=== PATIENT | female | born 1955 | race Caucasian/White ===

== ENCOUNTER 2016-09-10 13:23 | Outpatient (CLI) | payer BC ==
[~2016-09-10] VITALS: Ht 165.1 cm; Wt 68.7 kg
[~2016-09-10 13:23] MED LIST: ONDA-42 SL
--- OUTSIDE RECORDS SUMMARY | 2016-09-10 13:27 | XMS REPORT | Continuity of Care Document ---
Author Author [facility] Organization [facility] Address Unknown Phone Unavailable Care Team Providers Care Manager Produce Name Role Phone Yesica Shailesh PCP [phone] Source Comments Some departments are not documenting in the electronic medical record. If you do not see the information that you expected, contact Release of Information in the Health Information Management department at [phone] for further assistance in locating additional records.[facility] Active Allergies and Adverse Reactions Allergen Noted Date Severity Reactions Comments Shelia 10/10/2014 Medium NAUSEA ONLY, MENTAL STATUS CHANGES Current Medications Prescription Sig. Disp. Refills Start End Date Status Date lansoprazole DR(+) Take 30 mg by mouth twice Active (PREVACID) 30 mg capsule daily. HYDROCODONE/ACETAMINOPHEN Take by mouth. Active (VICODIN PO) scopolamine Apply 1 Patch to top of 10 Patch 1 02/08/20 Active (TRANSDERM-SCOP) 1.5 mg skin as directed every 72 15 patch hours. LORazepam (ATIVAN) 0.5 mg Take 2 Tabs by mouth 30 Tab 0 11/24/19 Active tablet every 8 hours as needed 16 for Nausea, Vomiting or Other.... Active Problems No known active problems Social History Tobacco Use Types Packs/Day Years Used Date Former Smoker Cigarettes 1 15 Alcohol Use Drinks/Week oz/Week Comments No 1-2 drinks per year Last Filed Vital Signs Vital Sign Reading Time Taken Blood Pressure 121/76 06/02/2015 12:13 PM REGULATORY TECHNICIAN Pulse 76 06/02/2015 12:13 PM REGULATORY TECHNICIAN Temperature 36.8 C (98.2 F) 06/02/2015 12:13 PM REGULATORY TECHNICIAN Respiratory Rate 16 06/02/2015 12:13 PM REGULATORY TECHNICIAN Height 1.702 m (5' 7") 06/02/2015 12:13 PM REGULATORY TECHNICIAN Weight 75.388 kg (166 lb 3.2 oz) 06/02/2015 12:13 PM REGULATORY TECHNICIAN Body Mass Index 26.02 06/02/2015 12:13 PM REGULATORY TECHNICIAN Oxygen Saturation - - Plan of Care Health Maintenance Due Date Last Done Comments Hepatitis C Screening 1954 Physical (Comprehensive) 1961 Exam Pertussis Vaccine 1965 Tetanus Vaccine 1971 Cervical Cancer Screening 1975 Breast Cancer Screening 1994 Shingles Vaccine 2014 Influenza Vaccine 03/18/2016 Colorectal Cancer 12/12/2024 12/12/2014 Screening Results from Last 3 Months Not on file
[2016-09-10 13:30] VITALS: BP 124/65
[2016-09-10] MEDS ORDERED: LYSI500T PO (13:36)
[2016-09-10] MEDS ORDERED: MILK1CAP2 PO (13:36)
[2016-09-10] MEDS ORDERED: LORA0.5T PO (13:36)
[2016-09-10] MEDS ORDERED: CHOL100045 PO (13:36)
[2016-09-10] MEDS ORDERED: GLUC100016 PO (13:36)
[2016-09-10] MEDS ORDERED: MULT-178 PO (13:36)
[2016-09-10 14:04] LABS: BASOPHILS % (AUTO) 0 % (0-10); EOSINOPHILS # (AUTO) 0.1 10^3/uL (0.0-0.3); EOSINOPHILS % (AUTO) 2 % (0-10); LYMPHOCYTES % (AUTO) 29 % (12-44); MEAN CORPUSCULAR HEMOGLOBIN 29 PG (25-34); MEAN CORPUSCULAR HGB CONC 33 G/DL (32-36); MEAN CORPUSCULAR VOLUME 88 FL (80-99); MEAN PLATELET VOLUME 11.3 FL (7.4-10.4); MONOCYTES # (AUTO) 0.4 X 10^3 (0.0-1.0); MONOCYTES % (AUTO) 5 % (0-12); NEUTROPHILS # (AUTO) 4.4 X 10^3 (1.8-7.8); NEUTROPHILS % (AUTO) 64 % (42-75); PLATELET COUNT 191 10^3/uL (130-400); RED CELL DISTRIBUTION WIDTH 14.3 % (10.0-14.5); WHITE BLOOD COUNT 6.9 10^3/uL (4.3-11.0)
[2016-09-10 14:25] LABS: ANION GAP 7 MMOL/L (5-14); BLOOD UREA NITROGEN 14 MG/DL (7-18); BUN/CREATININE RATIO 17; CALCIUM 9.5 MG/DL (8.5-10.1); CARBON DIOXIDE 26 MMOL/L (21-32); CHLORIDE 106 MMOL/L (98-107); CREATININE SERUM 0.83 MG/DL (0.60-1.30); GFR ESTIMATED > 60; GLUCOSE 107 MG/DL (70-105); POTASSIUM 3.9 MMOL/L (3.6-5.0); SODIUM 139 MMOL/L (135-145)
== END 2016-09-10 13:55 | disposition home or self-care (01) ==
LOC: PREOP 13:23
PROVIDERS: ATTEND Surgery
DX: Z01.812 Encounter for preprocedural laboratory examination (principal); Z11.2 Encounter for screening for other bacterial diseases; K80.20 Calculus of gallbladder without cholecystitis without obstruction
CPT/HCPCS: 36415; 80048; 85025; 87081

== ENCOUNTER 2016-09-15 08:55 | Day surgery (SDC) | payer BC ==
[~2016-09-15] VITALS: Ht 165.1 cm; Wt 68.7 kg
[~2016-09-15 08:55] MED LIST changes: +CHOL100045 PO; +GLUC100016 PO; +LORA0.5T PO; +LYSI500T PO; +MILK1CAP2 PO; +MULT-178 PO
[2016-09-15 08:57] VITALS: BP 115/72
--- OUTSIDE RECORDS SUMMARY | 2016-09-15 09:02 | XMS REPORT | Continuity of Care Document ---
Author Author [facility] Organization [facility] Address Unknown Phone Unavailable Care Team Providers Care Deicer Kit Assembler Name Role Phone Yesica Shailesh PCP [phone] Source Comments Some departments are not documenting in the electronic medical record. If you do not see the information that you expected, contact Release of Information in the Health Information Management department at [phone] for further assistance in locating additional records.[facility] Active Allergies and Adverse Reactions Allergen Noted [...] Taken Blood Pressure 121/76 06/02/2015 12:13 PM RELIEF PILOT Pulse 76 06/02/2015 12:13 PM RELIEF PILOT Temperature 36.8 C (98.2 F) 06/02/2015 12:13 PM RELIEF PILOT Respiratory Rate 16 06/02/2015 12:13 PM RELIEF PILOT Height 1.702 m (5' 7") 06/02/2015 12:13 PM RELIEF PILOT Weight 75.388 kg (166 lb 3.2 oz) 06/02/2015 12:13 PM RELIEF PILOT Body Mass Index 26.02 06/02/2015 12:13 PM RELIEF PILOT Oxygen Saturation - - Plan of Care Health Maintenance Due Date Last Done Comments Hepatitis C Screening 1954 Physical (Comprehensive) 1961 Exam Pertussis Vaccine 1965 Tetanus Vaccine 1971 Cervical Cancer Screening 1975 Breast Cancer Screening 1994 Shingles Vaccine 2014 Influenza Vaccine 03/18/2016 Colorectal Cancer 12/12/2024 12/12/2014 Screening Results from Last 3 Months Not on file
--- OUTSIDE RECORDS SUMMARY | 2016-09-15 09:03 | XMS REPORT | Continuity of Care Document ---
Author Author [facility] Organization [facility] Address Unknown Phone Unavailable Care Team Providers Care Hot Plate Plywood Press Offbearer Name Role Phone Yesica Shailesh PCP [phone] Source Comments Some departments are not documenting in the electronic medical record. If you do not see the information that you expected, contact Release of Information in the Health Information Management department at [phone] for further assistance in locating additional records.[facility] Active Allergies and Adverse Reactions Allergen Noted [...] Taken Blood Pressure 121/76 06/02/2015 12:13 PM POWER SWEEPER OPERATOR Pulse 76 06/02/2015 12:13 PM POWER SWEEPER OPERATOR Temperature 36.8 C (98.2 F) 06/02/2015 12:13 PM POWER SWEEPER OPERATOR Respiratory Rate 16 06/02/2015 12:13 PM POWER SWEEPER OPERATOR Height 1.702 m (5' 7") 06/02/2015 12:13 PM POWER SWEEPER OPERATOR Weight 75.388 kg (166 lb 3.2 oz) 06/02/2015 12:13 PM POWER SWEEPER OPERATOR Body Mass Index 26.02 06/02/2015 12:13 PM POWER SWEEPER OPERATOR Oxygen Saturation - - Plan of Care Health Maintenance Due Date Last Done Comments Hepatitis C Screening 1954 Physical (Comprehensive) 1961 Exam Pertussis Vaccine 1965 Tetanus Vaccine 1971 Cervical Cancer Screening 1975 Breast Cancer Screening 1994 Shingles Vaccine 2014 Influenza Vaccine 03/18/2016 Colorectal Cancer 12/12/2024 12/12/2014 Screening Results from Last 3 Months Not on file
[2016-09-15] MEDS ORDERED: ceFAZolin 1 GM/NS 50 ML IVPB IV ONE ×2 (09:15)
[2016-09-15] MEDS ORDERED: LACTATED RINGERS 1,000 ML IV PRN (09:37)
[2016-09-15] MEDS ORDERED: ONDANSETRON 4 MG/2 ML (SDV) Z0FRAN IV ONE (09:45)
[2016-09-15] MEDS ORDERED: MIDAZOLAM 2 MG/2 ML (VERSED) VIAL IV ONE (09:45)
[2016-09-15] MEDS ORDERED: LIDOCAINE 1% INJ 20 ML (XYLOCAINE) VIAL ONE (10:21)
[2016-09-15] MEDS ORDERED: BUPIVACAINE 0.5% 30 ML (SENSORCAINE) VIAL ONE (10:21)
[2016-09-15] MEDS ORDERED: fentaNYL INJECTION 100 MCG/2 ML AMP ONE ×2 (10:49→12:53)
[2016-09-15] MEDS ORDERED: MIDAZOLAM 2 MG/2 ML (VERSED) VIAL ONE (10:49)
--- NOTE | 2016-09-15 10:56 | Progress Note-Pre Operative ---
Pre-Operative Progress Note H&P Reviewed The H&P was reviewed, patient examined and no changes noted. Date H&P Reviewed: Sep 15, 2016 Time H&P Reviewed: 10:56 Pre-Operative Diagnosis: symptomatic cholelithiasis CRISTINO RODRIGUEZ DO Sep 15, 2016 10:56 am
--- NOTE | 2016-09-15 12:03 | Progress Note-Post Operative ---
Post-Operative Progess Note Statistical Machine Mechanic Dr. Mcdonough Pre-Operative Diagnosis symptomatic cholelithiasis Post-Operative Diagnosis same Post-Op Procedure Note Date of Procedure: Sep 15, 2016 Name of Procedure: laparoscopic cholecystectomy with intraoperative cholangiogram Procedure Note/Findings see note Anesthesia Type general Estimated blood loss (mL): minimal Specimen(s) collected gallbladder CRISTINO RODRIGUEZ DO Sep 15, 2016 12:03
[2016-09-15] MEDS ORDERED: LACTATED RINGERS 2,000 ML IV ONE (12:04)
[2016-09-15] MEDS ORDERED: ONDANSETRON 4 MG/2 ML (SDV) Z0FRAN ONE ×2 (12:04→12:53)
[2016-09-15] MEDS ORDERED: proPOfol 200 MG/20 ML (DIPRIVAN) VIAL IV ONE (12:04)
[2016-09-15] MEDS ORDERED: HYDR-3812 PO (12:04)
[2016-09-15] MEDS ORDERED: LIDOCAINE PF 2% 10 ML (XYLOCAINE) AMP ONE (12:04)
[2016-09-15] MEDS ORDERED: ROCURONIUM 50 MG/5 ML (ZEMURON) VIAL IV ONE (12:04)
[2016-09-15] MEDS ORDERED: GLYCOPYRROLATE 0.2 MG/ML (ROBINUL) 2 ML VIAL ONE (12:04)
[2016-09-15] MEDS ORDERED: DOCU-143 PO (12:04)
[2016-09-15] MEDS ORDERED: SEVOFLURANE (ULTANE) 15 ML INHAL SOLN ONE (12:04)
[2016-09-15] MEDS ORDERED: NEOSTIGMINE (BLOXIVERZ ) 1 MG/1ML 10 ML VIAL ONE (12:04)
--- NOTE | 2016-09-15 12:05 | Discharge Inst-Simple/Standard ---
Discharge Inst-Standard Discharge Medications New, Converted or Re-Newed RX: RX on Chart Patient Instructions/Follow Up Plan of Care/Instructions/FU: 2 weeks Rudy Activity as Tolerated: No Discharge Diet: Regular Diet Other Inst to Patient Follow up Appt: Make appointment for 2 weeks. Instructions: No lifting greater than 10 pounds. No strenuous activity. May shower in 24 hours, no tub bath or soaking. Use incentive spirometer at home as directed. No Smoking Skin/Wound Care: May remove bandages in 24 hours. You need to leave the white strips over incision on they will fall off on their own. Symptoms to Report: Appetite Changes, Extremity Discoloration, Numbness/Tingling, Swelling Increased , Bleeding Excessive, Eyesight Changes, Pain Increased, Urine Color Change, Constipation(Persistent), Fever over 101 degree F, Pain/Pressure in chest, Urinating Difficulty, Cough Up/Vomit Blood, Heart Beat Irreg/Pounding, Pain/ Pressure in jaw, Vaginal Bleeding Increase, Cramps in feet or legs, Lightheadedness, Pain/Pressure in shoulder, Diarrhea(Persistent), Memory Changes Suddenly, Questions/Concerns, Weight gain consecutive days, Dizziness/ Fainting, Nausea/Vomiting, Shortness of Breath, Weight gain over 2 pounds. If eyes or skin turn yellow notify physician. If questions or concerns contact your physician Or seek help at emergency department. CRISTINO RODRIGUEZ DO Sep 15, 2016 12:05
[2016-09-15] MEDS ORDERED: HYDROcodone/APAP 5 MG/325 MG (LORTAB) TAB PO PRN (12:15)
[2016-09-15] MEDS ORDERED: morphine INJ 10 MG/ML 1ML (SYR OR VIAL) ONE (12:27)
[2016-09-15] MEDS ORDERED: KETOROLAC 30 MG/ML VIAL ONE (12:27)
[2016-09-15] MEDS ORDERED: fentaNYL INJECTION 100 MCG/2 ML AMP IV PRN (12:30)
[2016-09-15] MEDS ORDERED: ONDANSETRON 4 MG/2 ML (SDV) Z0FRAN IV PRN (12:30)
[2016-09-15] MEDS: morphine INJ 10 MG/ML 1ML (SYR OR VIAL) IV PRN ×2 (12:33→12:40)
[2016-09-15] MEDS ORDERED: KETOROLAC 30 MG/ML VIAL IVP ONE (12:45)
[2016-09-15 13:20] VITALS: BP 107/70
[2016-09-15 14:00] VITALS: BP 108/71
[2016-09-15 14:45] VITALS: BP 110/71
[2016-09-15] MEDS ORDERED: ONDANSETRON 4 MG/2 ML (SDV) Z0FRAN IVP ONE (16:15)
[2016-09-15 17:30] VITALS: BP 110/71
--- NOTE | 2016-09-15 19:50 | Diagnostic Imaging Report ---
INDICATION: Cholecystectomy Operative cholangiogram performed in a routine fashion with contrast injection in surgery. The common duct is nondilated. There are no filling defects in the common duct. Contrast passes to the duodenum without obstruction. IMPRESSION: Unremarkable operative cholangiogram. 8 second fluoroscopy time was used in surgery. Dictated by: Dictated on workstation # [id number]
--- NOTE | 2016-09-16 12:15 | OPERATIVE REPORT ---
PROCEDURE PHYSICIAN: CRISTINO GRANT DATE OF PROCEDURE: 09/15/2016 PREOPERATIVE DIAGNOSIS: Symptomatic cholelithiasis. POSTOPERATIVE DIAGNOSIS: Symptomatic cholelithiasis. PROCEDURE: Laparoscopic cholecystectomy with intraoperative cholangiogram. SURGEON: Dr. Grant. EFFERVESCENT SALTS COMPOUNDER: Dr. Mcdonough, assisted in retraction, dissection, and closure. ANESTHESIA: General. ESTIMATED BLOOD LOSS: Minimal. COMPLICATIONS: None. INDICATIONS: The patient is a 51-year-old female who has been having right upper quadrant abdominal pain, nausea and vomiting. She had an ultrasound demonstrating cholelithiasis. She understands her symptoms are consistent with gallbladder disease. She understands the risks and benefits of the procedure and wished to proceed with procedure. Consent was signed on the chart. PROCEDURE: The patient was taken operating suite. She was prepped and draped in sterile fashion. A surgical pause was performed. A local anesthetic was infiltrated just superior to the umbilicus. Number 15 blade scalpel was used to make an incision and cautery was used to dissect down to the fascia. The fascia was then scored with cautery, grasped with Kochers and elevated. The abdomen was then entered. A 0 Vicryl was then placed in a [id number] fashion to close the fascia following the case. The trocar was then inserted in the abdomen and pneumoperitoneum was achieved. Under direct visualization of the laparoscope, a 5 mm trocar was then placed in the subxiphoid region and 2 5-mm trocars were placed in the right upper quadrant placing local anesthetic prior to incisions. The gallbladder was then grasped, elevated. There were multiple adhesions to this, which were then taken down. The cystic duct and cystic artery was then dissected out. This had more of a posterior location on the cystic duct. Clips were placed on the cystic artery proximally and distally. A clip was placed on the distal portion of the cystic duct and the duct was then partially transected. An arrow catheter was inserted for cholangiogram. Cholangiogram was then performed demonstrating no filling defects and also contrast made its way into the duodenum without difficulty. The catheter was removed. Clips were placed on proximal portion. This was then transected completely. Hook cautery was used to dissect the gallbladder from the gallbladder fossa achieving hemostasis. This was placed Endobag and removed through the 12 mm trocar site. Copious amounts of irrigation were used to irrigate the abdomen. The area was then reinspected again noting hemostasis had been achieved. The trocars were removed. The 12 mm fascial defects then closed with the previously placed 0 Vicryl suture. The skin was then closed using 4-0 Vicryl in a subcuticular fashion. The areas were then washed and dried. Mastisol and Steri-Strips were applied and sterile bandages were applied. The patient tolerated the procedure well without any complications. She was taken to the recovery room in stable condition. Job ID: [id number] Dictated Date: 09/15/2016 12:15:54 Wood Heel Flap Trimmer Date: 09/16/2016 12:04:55 / mile
== END 2016-09-15 17:30 | disposition home or self-care (01) ==
LOC: SDC 08:55
PROVIDERS: ATTEND Surgery
DX: K80.20 Calculus of gallbladder without cholecystitis without obstruction (principal)
CPT/HCPCS: 88304

== ENCOUNTER → 2018-04-24 | Outpatient (CLI) | payer BC ==
[~2018-04-24] MED LIST changes: +ACHD5005 PO; +DOCU-143 PO
--- NOTE | 2018-04-24 14:03 | Diagnostic Imaging Report ---
PROCEDURE: MRI lumbar spine. TECHNIQUE: Multiplanar, multisequence MRI of the lumbar spine was performed without contrast. INDICATION: Back pain. FINDINGS: There is bilateral spondylolysis at L5 with grade 2 spondylolisthesis of L5 on S1. The vertebral body heights are well maintained. No other fractures are identified. Conus medullaris is seen at L1 and is normal in appearance. The T12-L1 and L1-L2 discs are normal in height, signal intensity and morphology. At L2-L3, there is loss of disc height and signal intensity with some minimal annular bulging. There is slight effacement of the ventral thecal sac. At L3-L4, there is slight loss of disc height and signal intensity with some minimal annular bulging. There is slight effacement of the ventral thecal sac. At L4-L5, there is no spinal or neuroforaminal encroachment. At L5-S1, there is uncovering of the disc. There is severe right and moderately severe left neuroforaminal encroachment. The abdominal aorta is nonaneurysmal. Kidneys are unremarkable. IMPRESSION: Moderate lumbar spondylosis and degenerative disc disease as detailed above. Dictated by: Dictated on workstation # [id number]
== END ==
LOC: RAD 13:06
PROVIDERS: ATTEND Family Medicine
DX: M47.816 Spondylosis without myelopathy or radiculopathy, lumbar region (principal); M51.36 Other intervertebral disc degeneration, lumbar region; M51.26 Other intervertebral disc displacement, lumbar region; M43.06 Spondylolysis, lumbar region; M43.16 Spondylolisthesis, lumbar region; M99.73 Connective tissue and disc stenosis of intervertebral foramina of lumbar region
CPT/HCPCS: 72148

== ENCOUNTER 2021-06-04 19:29 | Emergency (ER) | payer BC, MEDICARE ==
[~2021-06-04 19:29] MED LIST changes: -LYSI500T PO; +LYSI500T10 PO
== END 2021-06-04 19:40 | disposition left against medical advice (07) ==
LOC: EDUNIT# 19:29 → ER 19:30
DX: R41.0 Disorientation, unspecified (principal); R11.10 Vomiting, unspecified